=== PATIENT | female | born 1990 | race Caucasian/White ===

== ENCOUNTER 2016-06-22 12:20 | Emergency (ER) | payer OTHER ==
[~2016-06-22] VITALS: Ht 160 cm; Wt 105.0 kg
[2016-06-22 12:22] VITALS: BP 143/72; PULSE 87; RESP 14; TEMP 97.9; O2SAT 98
--- NOTE | 2016-06-22 12:57 | PD ---
HPI Chief Complaint: Injury Time Seen by Provider: 12:55 Travel History International Travel<30 days: No Contact w/Intl Traveler<30days: No Traveled to known affect area: No History of Present Illness HPI Patient comes in complaining of right ankle pain and right knee pain status post fall that occurred shortly prior to arrival. Patient states that she was trying to help to get a car when she stepped in hole causing her to injure her ankle. Patient states pain is primarily in her right ankle is sharp and achy like in nature without radiation. Patient reports a tingling sensation in her right knee without radiation. Patient denies doing anything for this prior coming to the emergency department. Denies anything making it better. Patient reports pain is worse with movement of her right ankle as well as palpating her right ankle. Denies hitting her head or loss of consciousness or numbness. Denies . PFSH Past Medical History Medical History: Denies Significant Hx ?: Not LMP: 06/21/16 Social History Tobacco Use: No Substance Use: No Allergies-Medications (Allergen,Severity, Reaction): Coded Allergies: No Known Allergies (Unverified , 06/22/16) Reported Meds & Prescriptions Reported Meds & Active Scripts Active Naprosyn (Naproxen) 500 Mg Tab 500 Mg PO Q12HR PRN Review of Systems Except as stated in HPI: all other systems reviewed are Neg Physical Exam Narrative GENERAL: Well-developed, overly nourished, in no acute distress, and non-ill appearing. SKIN: Warm and dry. HEAD: Atraumatic. Normocephalic. EYES: Pupils equal and round. EOMI. No scleral icterus. No injection or drainage. ENT: No nasal bleeding or discharge. Mucous membranes pink and moist. NECK: Trachea midline. Supple. No nuclear rigidity. CARDIOVASCULAR: Dorsal pulses 2+, equal, and intact bilaterally. Capillary refill less than 2 seconds. No pedal edema. RESPIRATORY: No accessory muscle use. No respiratory distress. MUSCULOSKELETAL: No obvious deformities. No clubbing. No cyanosis. No edema. Full range of motion. Knee: Negative patellar apprehension, varus and valgus maneuvers, anterior draw test, and Kilo test. Pulses equal BL distal to injury. Capillary refill less than 2 seconds distal to injury and equal BL. FROM distal to injury and equal BL. Strength distal to injury equal BL. NV intact distal to injury. Dorsal pulses equal BL. Ankle: Neagative anterior draw and Figueroa test. Negative Israel's sign. No laxity noted with passive inversion and eversion of BL ankles. Negative squeeze test. Pulses equal BL distal to injury. Capillary refill less than 2 seconds distal to injury and equal BL. Sensation equal BL 1st web space. FROM of toes distal to injury and equal BL. NV intact distal to injury and equal BL. Dorsal pulses equal BL. The patient reports tenderness to palpation medial aspect of her right ankle. NEUROLOGICAL: Awake and alert. No obvious cranial nerve deficits. Motor grossly within normal limits. Normal speech. PSYCHIATRIC: Appropriate mood and affect; insight and judgment normal. Data Data Last Documented VS Vital Signs Date Time Temp Pulse Resp B/P Pulse Ox O2 Delivery O2 Flow Rate FiO2 06/22/16 12:22 97.9 87 14 143/72 98 Orders Knee, Complete (4vws) (06/22/16 ) Ankle, Complete ([id number]) (06/22/16 ) Splint Or Brace Apply/Monitor (06/22/16 13:49) [facility] Medical Decision Making Medical Screen Exam Complete: Yes Emergency Medical Condition: Yes Differential Diagnosis Fracture, sprain, contusion, other Narrative Course There is no clinical evidence for fracture. There is no clinical evidence to suspect bony injury by exam. Radiographic examination revealed no fracture seen at this time. No obvious ligamental injury or internal derangement is noted at this time. The distal extremity appears neurovascularly intact, without evidence of neurovascular injury nor compartment syndrome. Tendon exam also was intact. The effected limb was splinted. Patient was offered knee immobilizer but doesn't want this currently. The patient was discharged on pain medication along with sprain and splint care instructions and given warnings for vascular compromise. The patient is to follow up with workman's comp provider and/or Orthopedics. The patient agrees with plan. Patient in no obvious distress upon re-evaluation. All pertinent Radiology result(s) discussed with patient. Patient was asked if they wanted to speak to my attending, which the patient did not wish to do at this time. Any questions/ concerns in reference to patient diagnosis/condition discussed and clarified prior to patient's discharge. Reinforced sheer importance of close follow up with patient's primary physician or primary care clinic. Instructed patient to return to ED immediately, if symptoms return/worsen. Pt showed understanding of above instructions. Further instructions and recommendations were detailed in discharge paperwork. Pt ambulated without difficulty out of ED at discharge with crutches. Diagnosis Primary Impression: Right ankle sprain Qualified Code: S93.401A - Sprain of right ankle, unspecified ligament, initial encounter Additional Impression: Right knee pain Qualified Code: M25.561 - Acute pain of right knee Patient Instructions: Ankle Sprain (ED), Ankle Sprain Exercises (GEN), Ankle Stirrup Splint (ED), Crutch Instructions (ED), General Instructions, Splint Care (ED) Additional Instructions: Follow-up with your workmen's comp provider and/or orthopedics in one to 3 days. Take all medication as prescribed. Apply ice affected area 20 minutes per hour as needed for pain. Return to the emergency department if symptoms get worse. Med/Other Pt SpecificInfo: Prescription(s) given Scripts Naproxen (Naprosyn)500 Mg Cvw392 Mg PO Q12HR PRN (PAIN SCALE 1 TO 10) #12 TAB Ref 0 Prov:Marla Ochoa MD 06/22/16 Disposition: 01 DISCHARGE HOME Condition: Stable Gunnar Vivas Jun 22, 2016 12:57
--- NOTE | 2016-06-22 13:46 | RADRPT ---
EXAM DATE/TIME: 06/22/2016 12:56 [facility] COMPARISON: No previous studies available for comparison. INDICATIONS : Right ankle pain due to fall at work. MEDICAL HISTORY : None. SURGICAL HISTORY : None. ENCOUNTER: Initial ACUITY: 1 day PAIN SCORE: 6/10 LOCATION: Right Ankle. FINDINGS: Three view exam was performed of the right ankle. The bony structures are in normal alignment. No e vidence of fracture, dislocation, or soft tissue swelling. The ankle mortise is intact. No radiopaq ue foreign bodies are seen. Bony mineralization is normal. CONCLUSION: Negative exam. Conor García MD on June 22, 2016 at 13:44 Board Certified Radiologist. This report was verified electronically.
--- NOTE | 2016-06-22 13:46 | RADRPT ---
EXAM DATE/TIME: 06/22/2016 12:53 [facility] COMPARISON: No previous studies available for comparison. INDICATIONS : Right knee pain due to fall at work. MEDICAL HISTORY : None. SURGICAL HISTORY : None. ENCOUNTER: Initial ACUITY: 1 day PAIN SCORE: 6/10 LOCATION: Right Knee. FINDINGS: Four view examination of the right knee demonstrates no evidence of fracture or dislocation. Bony mi neralization is normal. The articular surfaces are intact. The suprapatellar soft tissues have a no rmal configuration. CONCLUSION: Negative exam. Conor García MD on June 22, 2016 at 13:42 Board Certified Radiologist. This report was verified electronically.
[2016-06-22] MEDS ORDERED: NAPR500 PO (13:57)
== END 2016-06-22 14:30 | disposition home or self-care (01) ==
LOC: NEPB 12:20
DX: S93.401A Sprain of unspecified ligament of right ankle, initial encounter (principal); M25.561 Pain in right knee; R20.2 Paresthesia of skin; W17.2XXA Fall into hole, initial encounter; Y99.0 Civilian activity done for income or pay
CPT/HCPCS: 73564; 73610; 99283; E0113; L1906